=== PATIENT | female | born 1980 | race Hispanic/Latino ===

== ENCOUNTER 2017-05-12 11:00 | Day surgery (SDC) | payer MEDICAID ==
[~2017-05-12 11:00] MED LIST: VANCOMYCIN/NS 1 GM/250 ML 1 GM/250 ML BAG IV NR
[2017-05-12] MEDS ORDERED: DILAUDID IV PRN (11:43)
--- NOTE | 2017-05-12 11:43 | Anesthesia Consultation ---
Anesthesia Consult and Med Hx Date of service: 05/12/17 - Airway Anesthetic Teeth Evaluation: Good, Crowns ROM Head & Neck: Adequate Mental/Hyoid Distance: Adequate Mallampati Class: Class II Intubation Access Assessment: Probably Good - Pulmonary Exam CTA: Yes - Cardiac Exam Cardiac Exam: RRR - Pre-Operative Health Status ASA Pre-Surgery Classification: ASA3 Proposed Anesthetic Plan: General - Pulmonary Hx Smoking: No Hx Sleep Apnea: No (GERALD PRE SCREEN HIGH RISK.) - Cardiovascular System Hx Hypertension: Yes (X 10 YRS) - Central Nervous System Hx Back Pain: Yes - Hematic Hx Anemia: Yes - Other Systems Hx Cancer: No Hx Obesity: Yes (morbid)
--- NOTE | 2017-05-12 11:43 | Anesthesia Day of Surgery ---
Anesthesia Day of Surgery - Day of Surgery Patient Examined: Yes Patient H&P Reviewed: Yes Patient is NPO: Yes Beta Blockers: Yes
[2017-05-12] MEDS ORDERED: LACTATED RINGERS 1,000 ML IV SCH (12:00)
[2017-05-12] MEDS ORDERED: PERCOCET 5/325 PO PRN ×2 (12:00→15:20)
[2017-05-12] MEDS ORDERED: PEPCID IV NR (12:00)
[2017-05-12] MEDS ORDERED: ZOFRAN IV PRN (12:00)
[2017-05-12] MEDS ORDERED: VERSED IV NR (12:00)
[2017-05-12] MEDS ORDERED: NACL BACTERIOSTATIC INFILTRATI ONE (12:22)
[2017-05-12] MEDS ORDERED: DIPRIVAN 10 MG/ML IV ONE (12:57)
[2017-05-12] MEDS ORDERED: DILAUDID ONE ×2 (12:57→15:06)
[2017-05-12] MEDS ORDERED: XYLOCAINE MPF 2% ONE (13:00)
[2017-05-12] MEDS ORDERED: MARCAINE-EPI 0.25%-1:200,000 INFILTRATI ONE ×2 (13:00→13:52)
[2017-05-12] MEDS ORDERED: XYLOCAINE 2% INFILTRATI ONE ×2 (13:00→13:52)
[2017-05-12] MEDS ORDERED: ADRENALIN ONE (13:01)
[2017-05-12] MEDS ORDERED: NACL 0.9% IR ONE (13:52)
[2017-05-12] MEDS ORDERED: ADRENALIN IV ONE (13:52)
[2017-05-12] MEDS ORDERED: ATROPINE ONE (14:10)
[2017-05-12] MEDS ORDERED: ROBINUL ONE (14:10)
[2017-05-12] MEDS ORDERED: ZOFRAN ONE (14:22)
[2017-05-12] MEDS ORDERED: TORADOL ONE (14:22)
--- NOTE | 2017-05-12 14:25 | Short Stay Summary ---
Short Stay Documentation Date of service: 05/12/17 Narrative H&P: 36yo female with persistent progressively worsening right knee pain with swelling and mechanical symptoms. The pain has failed to improve with nonoperative treatment and markedly limits her day to day activity. MRI positive for medial meniscus tear. The patient MRI findings and diagnosis discussed at length. Treatment alternatives discussed surgical nonsurgical including the risks and benefits of both. The patient understands and all questions answered. The patient wishes to proceed with surgery at this time. - History H&P: obtained from office Past Medical History: other (morbid obesity) Past Surgical History: No surgical history Social history: no significant social history - Allergies and Medications Current Medications: Allergies cefuroxime axetil [From Ceftin] Allergy (Verified 05/07/17 08:05) Rash Home Medications Medication Instructions Recorded Confirmed Last Taken Type Diclofenac Sodium 75 mg PO DAILY 05/07/17 05/12/17 1 Week Ago History FLUoxetine [PROzac] 20 mg PO QDAY 05/07/17 05/12/17 05/11/17 History Ferrous Sulfate [Feosol 325 MG tab] 325 mg PO DAILY 05/07/17 05/12/17 05/11/17 History Fluticasone [Flonase] 2 spray NS PRN PRN 05/07/17 05/12/17 05/12/17 07:00 History Labetalol [Normodyne] 200 mg PO BID 05/07/17 05/12/17 05/12/17 07:00 History Ranitidine HCl [Zantac 150 MG TAB] 150 mg PO PRN PRN 05/07/17 05/12/17 1 Week Ago History Tizanidine HCl [tiZANidine] 4 mg PO BID 05/07/17 05/12/17 1 Week Ago History Acetaminophen [Tylenol] 325 mg PO Q6HR PRN 05/12/17 05/12/17 05/12/17 07:00 History Losartan/Hydrochlorothiazide 1 tab PO DAILY 05/12/17 05/12/17 05/12/17 07:00 History [Losartan-Hctz 100-25 mg Tab] Active Medications Famotidine (Pepcid) 20 mg IV PREOP NR Stop: 05/12/17 15:00 Last Admin: 05/12/17 13:02 Dose: 20 mg Hydromorphone HCl (Dilaudid) 0.25 mg IV Q10MIN PRN PRN Reason: Pain, Moderate (4-6) Stop: 05/12/17 15:00 Vancomycin HCl (Vancomycin/Ns 1 Gm/250 Ml) 1 gm in 250 mls @ 167.007 mls/hr IV PREOP NR PRN Reason: Protocol Stop: 05/12/17 23:59 Last Admin: 05/12/17 13:06 Dose: 167.007 mls/hr Lactated Ringer's (Lactated Ringers) 1,000 mls @ 75 mls/hr IV DIRECT ZAIRA Last Admin: 05/12/17 12:45 Dose: 75 mls/hr Midazolam HCl (Versed) 2 mg IV PREOP NR Stop: 05/12/17 23:59 Last Admin: 05/12/17 13:06 Dose: 2 mg - Physical exam General appearance: no acute distress Integumentary: no rash, no growths, no abnormal pigmentation HEENT: Atraumatic Lungs: Normal air movement Breasts: deferred Heart: Regular rate Gastrointestinal: normal Female Genitourinary: deferred Rectal Exam: deferred Extremities: no ischemia, pulses intact, pulses symmetrical, No edema, normal temperature, normal color, Full ROM, abnormal Neurological: Normal gait, Normal speech, Strength at 5/5 X4 ext, Normal tone, Sensation intact, Cranial nerves 3-12 NL, Reflexes 2+ - Brief post op/procedure progress note Date of procedure: 05/12/17 Pre-op diagnosis: persistent right knee pain medial meniscus tear Post-op diagnosis: other (persistent right knee pain, large complex tear posterior horn medial meniscus) Procedure: right knee arthroscopy partial medial meniscectomy a Anesthesia: GETA Findings: as above Surgeon: SINAN MICHEL Estimated blood loss: minimal Pathology: none Condition: stable - Hospital course Hospital course: no perioperative complications - Disposition Condition at discharge: Good Disposition: DC-01 TO HOME OR SELFCARE Short Stay Discharge Plan Follow up with: AYSHA ALBERTS MD [Primary Care Provider] - 7 Days
--- NOTE | 2017-05-12 14:58 | Post Anesthesia Evaluation ---
- Post Anesthesia Evaluation Patient Participated: Yes Airway Patent: Yes Stable Respiratory Function: Yes Nausea/Vomiting: No Temp > 96.8F: Yes Pain Manageable: Yes Adequeate Hydration: Yes Anesthesia Complications: No Block Receding Appropriately: Not Applicable Patient on Ventilator: No
[2017-05-12] MEDS: DILAUDID IV PRN ×4 (15:10→15:36)
[2017-05-12] MEDS ORDERED: PERCOCET 5/325 ONE (15:37)
[2017-05-12] MEDS ORDERED: ROXICODONE PO ONE (17:51)
[2017-05-12 18:31] VITALS: BP 130/80
--- NOTE | 2017-05-12 20:12 | Operative Report ---
PREOPERATIVE DIAGNOSES: Persistent right knee pain, medial meniscus tear. POSTOPERATIVE DIAGNOSES: Persistent right knee pain, large complex tear located within the posterior horn of the medial meniscus. Grade 2/3 articular cartilage wear with the weightbearing portion central aspect of the medial femoral condyle. Grade 2 articular cartilage loss in the central aspect of the patella and trochlea. Several small cartilaginous loose bodies located diffusely throughout the knee. PROCEDURES: Right knee arthroscopy, partial medial meniscectomy. SURGEON: Jose Yuan MD. MILK SAMPLER: Wanda No, certified credit counselor. ANESTHESIA: General. PREOPERATIVE ANTIBIOTICS: Vancomycin 1 g IV within 1 hour of skin incision. DVT PROPHYLAXIS: Open toe thigh-high compression stockings and SCD pumps to the nonoperative left lower extremity. OPERATIVE SPECIMENS: None. ESTIMATED BLOOD LOSS: Minimal. OPERATIVE COMPLICATIONS: None. OPERATIVE HISTORY AND PHYSICAL: This is a 36-year-old female who has had persistent progressively worsening right knee pain with mechanical symptoms, which has failed to improve with nonoperative treatment. The knee markedly limits her day-to-day activities and has failed to improve despite extensive nonoperative treatment. MRI scan was performed, which was positive for a large tear located in the posterior horn of the medial meniscus. Treatment alternatives were discussed, surgical and nonsurgical including risks and benefits of both. After a long lengthy discussion, the patient opted to proceed with operative intervention. This would entail a right knee arthroscopy, partial medial meniscectomy and surgery as indicated. The risks of which were discussed to include but not exclusive of infection, blood loss, nerve damage, loss of range of motion and persistent pain. Again, the patient understood all of her questions answered and she wished to proceed with operative intervention. DESCRIPTION OF PROCEDURE: The patient was seen in the preoperative muller room area, at which point informed consent was reviewed and appropriate right lower extremity was identified and then marked. The patient was then brought back to the operating room and placed supine on a standard operating room table at which point general anesthesia was administered and LMA tube inserted. After confirmation of appropriate general anesthesia, appropriate placement of the LMA tube, we then made sure that all bony prominences were well padded and that there were no wrinkles in the compression stocking in the left lower extremity. SCD pumps were applied to the left lower extremity, made sure that all bony prominences were well padded. The head was secured in neutral position. The arms also secured in neutral position at the patient's side with the aid of a well arm muller. The patient was strapped for safety. The well left leg was also secured in position for safety as well, made sure there were no wrinkles in the compression stockings on the left lower extremity. SCD pumps were applied to the left lower extremity. The right lower extremity was then examined under anesthesia. The patient was seen to have full range of motion without any evidence of instability with a negative Audra, negative anterior drawer, negative posterior drawer. No varus or valgus instability at 0 as well as 30 degrees of flexion. Following examination under anesthesia, the right lower extremity was then prepped and draped in the usual sterile fashion. After prepping and draping, a timeout was called and appropriate right lower extremity was identified which again had been marked in the preop holding area. Infiltrated the knee with 30 mL of 0.25% Marcaine with epinephrine and 30 mL of 2% lidocaine without epinephrine which the patient tolerated well. There were no complications. Following this, I began the procedure by first making a standard anterolateral portal with a #15 blade. Once the portal was established, a cannula with a blunt trocar was inserted into the intra-articular aspect of the knee joint. This went without difficulty or damage to articular cartilage. Once in place, the arthroscopic camera was immediately placed in the medial aspect of the knee. We established anteromedial portal by first inserting an 18 gauge spinal spine under direct arthroscopic visualization. Once confirmed to be in appropriate position, a #15 blade was then used to establish anteromedial portal. Once the portals were established, a blunt trocar was inserted via the portal site. Following the arthroscopic probe, we began our diagnostic arthroscopy in the medial aspect of the knee. The patient seemed to have a large complex tear located within the posterior horn of the medial meniscus. There was grade 2/3 articular cartilage wear almost the entire weightbearing portion of the medial femoral condyle. Inspection of the notch showed the ACL and PCL to be intact and stable when probed. Inspection of the lateral compartment showed there to be no tears in the anterior or posterior horn of the lateral meniscus. There was normal articular cartilage in the lateral femoral condyle and lateral tibial plateau. Inspection of the medial and lateral gutters showed there to be several small cartilaginous loose bodies present, which were removed using a 4.0 meniscal shaver. Inspection of the patellofemoral joint showed there to be grade 2/3 articular cartilage loss in the central aspect of the patella and trochlea with normal patellofemoral tracking. There were no loose bodies within the suprapatellar pouch. Arthroscopic camera was then placed in the posterior aspect of the knee, anterior cruciate ligament and femoral condyle. Once the posterior aspect of the knee was felt there were no root tears present and there were no further loose bodies, we then turned our attention to the medial meniscus tear. This was irreparable and we performed a partial medial meniscectomy in standard fashion using a series of basket punches and 4.0 meniscal shaver down to a nice, smooth, stable, healthy remaining border ____ removing the white-white as well as a portion of the white-red zone. Following this, the arthroscopic pump was turned off and made sure there was good hemostasis. Once this was confirmed, the fluid was suctioned from the knee using arthroscopic cannula. Following this, all the arthroscopic instrumentation was removed. The 2 portal sites were closed with 3-0 nylon in simple fashion. Adaptic, 4 x 4, ABD open toe thigh-high compression stocking was applied. The patient was then awakened from general anesthesia without complications, taken to recovery room in stable condition. Standard postop orders were written. JOB# [id number] MOUNIKA/STEFFEN
== END 2017-05-12 18:35 | disposition home or self-care (01) ==
LOC: OR 11:00
PROVIDERS: ATTEND Orthopaedic Surgery
DX: S83.231A Complex tear of medial meniscus, current injury, right knee, initial encounter (principal); M23.41 Loose body in knee, right knee; M94.8X6 Other specified disorders of cartilage, lower leg; I10 Essential (primary) hypertension; D64.9 Anemia, unspecified; E66.01 Morbid (severe) obesity due to excess calories; Z68.44 Body mass index [BMI] 60.0-69.9, adult; Z88.1 Allergy status to other antibiotic agents; Z79.899 Other long term (current) drug therapy; X58.XXXA Exposure to other specified factors, initial encounter
CPT/HCPCS: 29881; 81025; A4217; J0171; J0461; J1170; J1885; J2250; J2405; J2704; J3370; J7120